=== PATIENT | female | born 1995 | race Caucasian/White ===

== ENCOUNTER 2020-03-17 18:18 | Emergency (ER) | payer OTHER ==
[~2020-03-17] VITALS: Ht 167.6 cm; Wt 110.0 kg
--- NOTE | 2020-03-17 18:50 | PHYS DOC ---
Past History Past Medical History: Anemia, GERD, Other Past Medical History Mold Infection of Lungs-[place] [facility] EDM: Chief Complaint: NAUSEA/VOMITING/DIARRHEA HPI: HPI: ".. I ve been sick since yesterday... Nausea.. Vomiting... Diarrhea.. everyone else ate the same food,.. rice, beans.. last night.. the diarrhea is like Water like..the diarrhea just does not stop... some cramping.. no one else is sick.. 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 Patient normally healthy. 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 Patient up-to-date with vaccinations. No recent travel outside the [place] area but had moved here from [place] to teach school at the [employer]. No one else in the home are sick. All the other members of the family member have been eating the same food. They are on city water. They are not exposed to animals. Patient said the pain is somewhat generalized.. There is no specific area of rebound. Patient normally follows with Dr. Bain. Last meal intake was beans and rice last night. Review of Systems: Review of Systems: Constitutional: Denies fever or chills Eyes: Denies change in visual acuity HENT: Denies nasal congestion or sore throat Respiratory: Denies cough or shortness of breath Cardiovascular: Denies chest pain or edema GI: Complains of generalized abdominal pain, nausea, and watery diarrhea : Denies dysuria Musculoskeletal: Denies back pain or joint pain Integument: Denies rash Neurologic: Denies headache, focal weakness or sensory changes Endocrine: Denies polyuria or polydipsia Lymphatic: Denies swollen glands Psychiatric: Denies depression or anxiety Family History: Family History: Noncontributory to presentation Current Medications: Current Meds: See nursing for home meds Allergies: Allergies: No known drug allergies Physical Exam: PE: Constitutional: Well developed, well nourished, moderate acute distress, non- toxic appearance. [] HENT: Normocephalic, atraumatic, bilateral external ears normal, oropharynx dry, no oral exudates, nose normal. [] Eyes: PERRLA, EOMI, conjunctiva normal, no discharge. [] Neck: Normal range of motion, no tenderness, supple, no stridor. [] Cardiovascular: Tachycardia heart rate regular rhythm, no murmur [] Lungs & Thorax: Bilateral breath sounds equal at apex on auscultation [] Abdomen: Bowel sounds hyperactive, soft, generalized tenderness, no masses, no pulsatile masses. No focal areas of rebound lower abdomen, but does have some Rt. upper quadrant/ epigastric tenderness. Tympanic. Skin: Warm, dry, no erythema, no rash. [] Back: No tenderness, no CVA tenderness. [] Extremities: No tenderness, no cyanosis, no clubbing, ROM intact, no edema. No cording. No psoas sign. Neurologic: Alert and oriented X 3, normal motor function, normal sensory function, no focal deficits noted. [] Psychologic: Affect anxious, judgement normal, mood normal. [] EKG: EKG: [] Radiology/Procedures: Radiology/Procedures: [][place] [address] IMAGING REPORT Signed PATIENT: MARTINA HODGSON ACCOUNT: [id number] : 1995 LOCATION: ER AGE: 24 SEX: F EXAM STATUS: DEP ER ORD. PHYSICIAN: ROXANA CERVANTES MD REASON: n,v, pain PROCEDURE: ACUTE ABDOMEN SERIES Acute abdominal series: Reason for examination: Nausea and vomiting pain. The heart size is normal. Mediastinum is unremarkable. Lung jorgensen show a few small calcified granuloma. No consolidated infiltrates or pleural effusions are evident. No acute bony abnormalities are seen. In the abdomen, there is no gross organomegaly. Psoas muscles are symmetric. The bowel gas pattern is nonspecific with no abnormally dilated loops of bowel but a few air-fluid levels are present which may reflect mild ileus or changes from early or partial bowel obstruction. No abnormal calcifications are identified. No acute bony abnormalities are seen. IMPRESSION: No acute cardiopulmonary disease. A few scattered air-fluid levels on upright image which may reflect ileus or changes from early or partial bowel obstruction. Recommend clinical correlation and follow-up. Electronically signed by: Stephanie Lora MD (03/17/2020 10:52 PM) [facility] DICTATED AND SIGNED BY: STEPHANIE LORA MD DATE: 03/17/202247 CC: ROXANA CERVANTES MD; ANALI BAIN ~MTH0 0 Heart Score: Risk Factors: Risk Factors: DM, Current or recent (<one month) smoker, HTN, HLP, family history of CAD, obesity. Risk Scores: Score 0 - 3: 2.5% MACE over next 6 weeks - Discharge Home Score 4 - 6: 20.3% MACE over next 6 weeks - Admit for Clinical Observation Score 7 - 10: 72.7% MACE over next 6 weeks - Early Invasive Strategies Course & Med Decision Making: Course & Med Decision Making Pertinent Labs and Imaging studies reviewed. (See chart for details) Patient stay on a clear fluid diet for the next 24 to 48 hours. Allow bowel rest. No solids or milk products. Push clear fluids. Take Zofran 8 mg up to 4 times a day for active vomiting. May use [id number] Pepto-Bismol as needed for diarrhea episodes. 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 Patient wear a mask anytime she is outside the home. Mass should cover her nose and mouth at all times. Take Tylenol and ibuprofen as needed for discomfort. Return if any concerns. Impression: [1. Acute gastroenteritis 2. Viral syndrome 3. Mild dehydration] 4. GERD/gastritis [place] Disclaimer: Ángela Disclaimer: This electronic medical record was generated, in whole or in part, using a voice recognition dictation system. Departure Departure: Referrals: ANALI BAIN (PCP) Scripts Oxycodone HCl/Acetaminophen (Percocet 5-325 mg Tablet) 1 Each Tablet 1 TAB PO PRN QID PRN for PAIN MDD 4 Tablet(s) for 30 Days, #120 TAB 0 Refills Prov: ROXANA CERVANTES MD 03/17/20 Famotidine (PEPCID) 20 Mg Tablet 20 MG PO BID for gerd for 30 Days, #60 TAB Prov: ROXANA CERVANTES MD 03/17/20 Ondansetron Hcl (ZOFRAN) 4 Mg Tablet 8 MG PO QIDPRN for nv, #30 TAB Prov: ROXANA CERVANTES MD 03/17/20 Dragon Disclaimer This chart was dictated in whole or in part using Voice Recognition software in a busy, high-work load, and often noisy Emergency Department environment. It may contain unintended and wholly unrecognized errors or omissions. ROXANA CERVANTES MD Mar 17, 2020 18:50
[2020-03-17] MEDS ORDERED: ONDANSETRON PF 4 MG/2 ML VIAL. IVP ONE (19:15)
[2020-03-17] MEDS ORDERED: oxyCODONE/APAP 5/325 1 TAB TABLET PO ONE (19:15)
[2020-03-17] MEDS ORDERED: IV RINGERS SOLUTION,LACTATED 1,000 ML IV SCH (19:15)
[2020-03-17] MEDS ORDERED: FAMOTIDINE 20 MG/2 ML VIAL IVP ONE (19:15)
[2020-03-17 19:34] LABS: BASO % 0 % (0-3); EOS % 0 % (0-3); HEMATOCRIT 40.1 % (36.0-47.0); HEMOGLOBIN 12.8 g/dL (12.0-15.5); LYMPH % 14 % (24-48); MEAN CORPUSCULAR HEMOGLOBIN 26 pg (25-35); MEAN CORPUSCULAR HGB CONC 32 g/dL (31-37); MEAN CORPUSCULAR VOLUME 82 fL (79-100); MONO # 0.2 x10^3/uL (0.0-1.1); MONO % 3 % (0-9); NEUT # 5.7 x10^3uL (1.8-7.7); NEUT % 83 % (31-73); PLATELET COUNT 257 x10^3/uL (140-400); RED BLOOD COUNT 4.92 x10^6/uL (3.50-5.40); RED CELL DISTRIBUTION WIDTH 15.6 % (11.5-14.5)
[2020-03-17 19:37] LABS: CALCIUM 9.3 mg/dL (8.5-10.1); CREATININE 0.7 mg/dL (0.6-1.0); GFR 101.1; POTASSIUM 3.6 mmol/L (3.5-5.1)
[2020-03-17 19:42] VITALS: BP 115/66
[2020-03-17 19:43] LABS: ALBUMIN 3.9 g/dL (3.4-5.0); DIRECT BILIRUBIN 0.1 mg/dL (0.0-0.2); TOTAL BILIRUBIN 0.3 mg/dL (0.2-1.0); TOTAL PROTEIN 8.2 g/dL (6.4-8.2)
[2020-03-17 21:10] LABS: INFLUENZA A PATIENT NEGATIVE (NEGATIVE); INFLUENZA B PATIENT NEGATIVE (NEGATIVE)
[2020-03-17 21:43] LABS: BACTERIA,URINE FEW /HPF (0-FEW); BILIRUBIN,URINE NEG (NEG); CLARITY,URINE CLEAR; COLOR,URINE YELLOW; GLUCOSE,URINE NEG (NEG); NITRITE,URINE NEG (NEG); RBC,URINE OCC /HPF (0-2); SQUAMOUS EPITHELIAL CELL,UR OCC /LPF; UROBILINOGEN,URINE 0.2 mg/dL (0.2 mg/dL); WBC,URINE OCC /HPF (0-4)
[2020-03-17] MEDS ORDERED: ONDA4TAB7 PO (22:10)
[2020-03-17] MEDS ORDERED: FAMO-63 PO (22:10)
[2020-03-17] MEDS ORDERED: OXYC-325 PO (22:12)
--- NOTE | 2020-03-17 22:54 | RAD ---
Acute abdominal series: Reason for examination: Nausea and vomiting pain. The heart size is normal. Mediastinum is unremarkable. Lung jorgensen show a few small calcified granulo ma. No consolidated infiltrates or pleural effusions are evident. No acute bony abnormalities are see n. In the abdomen, there is no gross organomegaly. Psoas muscles are symmetric. The bowel gas pattern is nonspecific with no abnormally dilated loops of bowel but a few air-fluid levels are present which m ay reflect mild ileus or changes from early or partial bowel obstruction. No abnormal calcifications are identified. No acute bony abnormalities are seen. IMPRESSION: No acute cardiopulmonary disease. A few scattered air-fluid levels on upright image which may reflect ileus or changes from early or pa rtial bowel obstruction. Recommend clinical correlation and follow-up. Electronically signed by: Stephanie Sharma MD (03/17/2020 10:52 PM) [facility]
--- NOTE | 2020-03-21 14:43 | NUR ---
IP: attempt to return call to patient regarding COVID test result, unable to make call, error message.
== END 2020-03-17 22:45 | disposition home or self-care (01) ==
LOC: ER 18:18
DX: K52.9 Noninfective gastroenteritis and colitis, unspecified (principal); B34.9 Viral infection, unspecified; E86.0 Dehydration; Z20.822 Contact with and (suspected) exposure to COVID-19
CPT/HCPCS: 36415; 74022; 80048; 80076; 81001; 81025; 83690; 84702; 85025; 87804; 96361; 96374; 96375; 99284; C9803; J2405; J3490; J7120; U0003

== ENCOUNTER 2020-04-23 12:46 | Observation (INO) | payer OTHER ==
[~2020-04-23] VITALS: Ht 167.6 cm; Wt 105.0 kg
[~2020-04-23 12:46] MED LIST: FAMO-63 PO; ONDA4TAB7 PO; OXYC-325 PO
--- NOTE | 2020-04-23 14:15 | NUR ---
PT ARRIVED TO UNIT VIA AMBULATION. PTS VS OBTAINED AND ARE STABLE. PT IS OFFERED FOOD AND DRINK AND ACCEPTS. 20G IV STARTED IN l AC. LABS DRAWN. PT IS ORIENTED TO ROOM AND PROCEDURES PT IS GIVEN ALL ADMISSION TEACHING. PT IS RESTING IN ROOM AT THIS TIME,
[2020-04-23] MEDS ORDERED: MORPHINE SULFATE 2 MG/ML DISP.SYRIN. IV PRN (14:30)
[2020-04-23] MEDS ORDERED: IV 1/2 NORMAL SALINE 1,000 ML IV PRN (14:30)
[2020-04-23] MEDS ORDERED: ONDANSETRON PF 4 MG/2 ML VIAL. IVP PRN (14:30)
[2020-04-23 14:46] LABS: BASO % 1 % (0-3); EOS # 0.1 x10^3/uL (0.0-0.7); EOS % 2 % (0-3); HEMATOCRIT 36.7 % (36.0-47.0); HEMOGLOBIN 11.9 g/dL (12.0-15.5); LYMPH # 1.4 x10^3/uL (1.0-4.8); LYMPH % 27 % (24-48); MEAN CORPUSCULAR HEMOGLOBIN 26 pg (25-35); MEAN CORPUSCULAR HGB CONC 32 g/dL (31-37); MEAN CORPUSCULAR VOLUME 80 fL (79-100); MONO # 0.3 x10^3/uL (0.0-1.1); MONO % 6 % (0-9); NEUT # 3.4 x10^3uL (1.8-7.7); NEUT % 65 % (31-73); PLATELET COUNT 302 x10^3/uL (140-400); RED BLOOD COUNT 4.56 x10^6/uL (3.50-5.40); RED CELL DISTRIBUTION WIDTH 14.5 % (11.5-14.5); WHITE BLOOD COUNT 5.2 x10^3/uL (4.0-11.0)
--- NOTE | 2020-04-23 14:58 | NUR ---
DR MONET PAGED FOR NEUROLOGY CONSULT.
[2020-04-23 15:00] VITALS: BP 136/72
[2020-04-23 15:07] LABS: ALBUMIN 3.5 g/dL (3.4-5.0); ALBUMIN/GLOBULIN RATIO 0.9 (1.0-1.7); CALCIUM 9.2 mg/dL (8.5-10.1); CREATININE 0.7 mg/dL (0.6-1.0); DIRECT BILIRUBIN 0.1 mg/dL (0.0-0.2); GFR 100.4; POTASSIUM 3.9 mmol/L (3.5-5.1); TOTAL BILIRUBIN 0.3 mg/dL (0.2-1.0); TOTAL PROTEIN 7.5 g/dL (6.4-8.2)
--- NOTE | 2020-04-23 15:08 | RAD ---
Study: CT lumbar spine without contrast INDICATION: Lower extremity numbness. COMPARISON: None. TECHNIQUE: Axial CT imaging of the lumbar spine performed without the use of intravenous contrast. One or more of the following individualized dose reduction techniques were utilized for this examinat ion: 1. Automated exposure control 2. Adjustment of the mA and/or kV according to patient size 3. Use of iterative reconstruction technique. FINDINGS: No acute fracture. Maintained vertebral body height and alignment. Minimal disc space narrowing at L5 -S1. No advanced facet arthrosis. No large disc bulge but there is a mild central/left paracentral di sc protrusion at L5-S1 appearing to measure up to 5 mm AP. No significant central canal stenosis. Mil d encroachment on the left lateral recess at L5-S1. Mild osseous neural foraminal stenosis bilaterall y at L5-S1. Mild periarticular sclerosis at the SI joints without an active erosion. No ankylosis. Within normal limits paraspinous soft tissues and visualized abdominopelvic contents. IMPRESSION: 1. No acute or aggressive osseous process. 2. Mild degenerative changes at L5-S1 with a central/left paracentral disc protrusion that could mil dly encroach on the left lateral recess. Bilateral osseous neural foraminal stenosis. No evidence for significant central canal narrowing. Outpatient/nonemergent MRI would allow for better characterizat ion as deemed clinically necessary. Electronically signed by: YONAS GANN MD (04/23/2020 3:06 PM) [facility] [place]
[2020-04-23 18:07] LABS: BILIRUBIN,URINE NEG (NEG); CLARITY,URINE CLEAR; COLOR,URINE YELLOW; GLUCOSE,URINE NEG (NEG); NITRITE,URINE NEG (NEG)
[2020-04-23 18:08] LABS: BACTERIA,URINE FEW /HPF (0-FEW); RBC,URINE OCC /HPF (0-2); SQUAMOUS EPITHELIAL CELL,UR MANY /LPF; WBC,URINE OCC /HPF (0-4)
[2020-04-23] MEDS ORDERED: LORazepam TOPICAL 0.5 MG/ML GEL TP PRN (18:30)
[2020-04-23] MEDS ORDERED: LORazepam 0.5 MG TABLET PO PRN (18:30)
[2020-04-23 19:00] VITALS: BP 98/55
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
[2020-04-24 06:12] VITALS: BP 106/65
--- NOTE | 2020-04-24 06:12 | NUR ---
Shift Note: Pt a/o x4, VSS, no c/o n/v during night, pt continues to c/o numbness in bilateral hands and weakness in bilateral LE, no incidence of incontinence during night. Dr. Aquino saw pt last evening and discussed outpatient MRI at [facility] and then f/u in his office for EMG (pt aware of plan), pt anticipating d/c today.
[2020-04-24] MEDS ORDERED: methylPREDNISolone SOD SUCC PF 40 MG/ML VIAL. IV ONE (10:30)
--- NOTE | 2020-04-24 11:17 | PN ---
DATE: REFERRING PHYSICIAN: Dr. Steffen Blackmon SUBJECTIVE: The patient continued to complain of numbness and paresthesia of the distal upper and lower extremities along with lower back pain described as burning sensation. She denies neck pain this morning. She has not had any new medical or neurological complaints. OBJECTIVE: GENERAL: Obese female, not in acute distress. VITAL SIGNS: Blood pressure 106/65, respiratory rate 12, pulse is ____, temperature 97.5, oxygen saturation 97% on room air. HEENT: Normocephalic, atraumatic, otherwise unremarkable. NECK: Supple. Negative for carotid bruit, lymphadenopathy or thyromegaly. LUNGS: Clear to A and P. CARDIOVASCULAR: Regular rate and rhythm, normal S1, S2. ABDOMEN: Soft. Bowel sounds positive. EXTREMITIES: Negative for cyanosis, clubbing or edema. NEUROLOGICAL EXAM: Normal mental status and intact cranial nerves. There is no focal motor deficit. The strength is 5/5 throughout. Sensory examination revealed diminished pinprick and light touch senses in patchy distributions in distal upper and lower extremities. Deep tendon reflexes were symmetric and active without pathology responses. Gait and coordination are normal. IMPRESSION: 1. Neck and lower back pain with degenerative disk disease and bulging disk at L5-S1. 2. Positive ____ and Phalen's signs suggestive of entrapment neuropathy at the wrist and possible bilateral carpal tunnel syndrome. 3. Chronic radicular lower back pain. RECOMMENDATIONS: 1. Continue with previous neurological recommendation including C-spine and lumbosacral spine MRI. 2. ____ EMG/NCS of the upper and lower extremities to rule out entrapment neuropathy versus radiculopathy. M Gonzalo MONET MD DR: SABAS/anais JOB#: [id number] / [id number]
--- NOTE | 2020-04-24 11:36 | NUR ---
PATIENT IS DISCHARGED HOME. DISCHARGE INSTRUCTIONS AND FOLLOW UP APPOINTMENTS REVIEWED, PATIENT VERBALIZED UNDERSTANDING. PATIENT LEFT ROOM VIA AMBULATION ACCOMP BY THIS RN. PATIENT IS DRIVING SELF HOME.
== END 2020-04-24 11:35 | disposition home or self-care (01) ==
LOC: INTOOBSV 13:59 → ICU 13:59
PROVIDERS: ADMIT Family Medicine; ATTEND Family Medicine
DX: M51.37 Other intervertebral disc degeneration, lumbosacral region (principal); G89.29 Other chronic pain; M54.2 Cervicalgia; J45.909 Unspecified asthma, uncomplicated; M19.90 Unspecified osteoarthritis, unspecified site; R32 Unspecified urinary incontinence; Z98.891 History of uterine scar from previous surgery; V89.2XXA Person injured in unspecified motor-vehicle accident, traffic, initial encounter; Y92.410 Unspecified street and highway as the place of occurrence of the external cause; Y93.89 Activity, other specified; Y99.8 Other external cause status
CPT/HCPCS: 36415; 72131; 80053; 80076; 81001; 85025; 85379; 86140; 96374; G0378; G0379; J2920

== ENCOUNTER 2020-06-14 14:25 | Emergency (ER) | payer OTHER ==
[~2020-06-14] VITALS: Ht 167.6 cm; Wt 103.0 kg
--- NOTE | 2020-06-14 15:06 | PHYS DOC ---
Past History Past Medical History: Asthma Past Surgical History: Alcohol Use: None General Adult EDM: Chief Complaint: VAGINAL BLEEDING HPI: HPI: Patient is a 25-year-old female who presents with vaginal bleeding with . Patient states that she was seen on Tuesday by her PCP and told that she was . Last menstrual period was the beginning of March. Patient is G3, P1. Patient is also reporting lower pelvic pain. Patient denies taking anything for discomfort. Patient has not confirmed with OB yet. Patient states that she has an appointment next Tuesday for an ultrasound. Review of Systems: Review of Systems: Constitutional: Denies fever or chills Eyes: Denies change in visual acuity HENT: Denies nasal congestion or sore throat Respiratory: Denies cough or shortness of breath Cardiovascular: Denies chest pain or edema GI: Reports lower abdominal pain, nausea. denies vomiting, bloody stools or diarrhea /Vaginal: Denies dysuria, reports light spotting Musculoskeletal: Denies back pain or joint pain Integument: Denies rash Neurologic: Denies headache, focal weakness or sensory changes Endocrine: Denies polyuria or polydipsia Lymphatic: Denies swollen glands Psychiatric: Denies depression or anxiety Allergies: Allergies: Allergies Coded Allergies Type Severity Reaction Last Updated Verified No Known Drug Allergies 06/14/20 No Physical Exam: PE: Constitutional: Well developed, well nourished, no acute distress, non-toxic appearance. [] HENT: Normocephalic, atraumatic, bilateral external ears normal, oropharynx moist, no oral exudates, nose normal. [] Eyes: PERRLA, EOMI, conjunctiva normal, no discharge. [] Neck: Normal range of motion, no tenderness, supple, no stridor. [] Cardiovascular:Heart rate regular rhythm, no murmur [] Lungs & Thorax: Bilateral breath sounds clear to auscultation [] Abdomen: Bowel sounds normal, soft, no tenderness Skin: Warm, dry, no erythema, no rash. [] Back: No tenderness, no CVA tenderness. [] Extremities: No tenderness, no cyanosis, no clubbing, ROM intact, no edema. [] Neurologic: Alert and oriented X 3, normal motor function, normal sensory function, no focal deficits noted. [] Psychologic: Affect normal, judgement normal, mood normal. [] Current Patient Data: Vital Signs: Vital Signs Date Time Temp Pulse Resp B/P (MAP) Pulse Ox O2 Delivery O2 Flow Rate FiO2 06/14/20 14:30 98.6 100 20 119/64 (82) 97 Room Air EKG: EKG: [] Radiology/Procedures: Radiology/Procedures: []EXAM: OBSTETRIC ULTRASOUND, <14 WEEKS. HISTORY: Pelvic pain and vaginal bleeding in . COMPARISON: None. FINDINGS: Sonographic evaluation of the pelvis was performed transabdominally. The uterus is anteverted and measures 11.1 x 8 0.0, 7.0 cm. There is a single intrauterine gestation measuring 9 weeks 5 days. heart rate is 173 bpm. A yolk sac is visualized. The gestational sac is regular. There is no subchorionic collection. The right ovary measures 3.5 x 2.4 x 2.4 cm. The left ovary measures 2.7 x 1.9 x 1.6 cm. There is normal Doppler flow bilaterally. There is no adnexal mass. There is no significant free fluid. IMPRESSION: 1. Single intrauterine gestation measuring 9 weeks 5 days. heart rate 173 bpm. Electronically signed by: Kathleen Johnson MD (06/14/2020 4:23 PM) [facility] Heart Score: C/O Chest Pain: No Risk Factors: Risk Factors: DM, Current or recent (<one month) smoker, HTN, HLP, family history of CAD, obesity. Risk Scores: Score 0 - 3: 2.5% MACE over next 6 weeks - Discharge Home Score 4 - 6: 20.3% MACE over next 6 weeks - Admit for Clinical Observation Score 7 - 10: 72.7% MACE over next 6 weeks - Early Invasive Strategies Course & Med Decision Making: Course & Med Decision Making Pertinent Labs and Imaging studies reviewed. (See chart for details) [] Patient is transferring female presents with vaginal bleeding with . Patient was told on Tuesday by her PCP that she was . Patient is G3, P1. Patient is reporting lower pelvic pain. Ultrasound was ordered. Patient reports symptoms started this morning. UA negative for infection. Urine prior negative. All other labs unremarkable. Ultrasound shows Single intrauterine gestation measuring 9 weeks 5 days. heart rate 173 bpm. Instructed patient to follow-up with her OB on Tuesday. Patient to return to the emergency room with worsening symptoms or concerns. Dragon Disclaimer: Dragon Disclaimer: This electronic medical record was generated, in whole or in part, using a voice recognition dictation system. Departure Departure: Impression: Primary Impression: Vaginal bleeding during Disposition: 01 HOME / SELF CARE / HOMELESS Condition: STABLE Referrals: JEFERSON MEJIA MD (PCP) Patient Instructions: Vaginal Bleeding During , First Trimester Additional Instructions: You were seen in the emergency room for vaginal bleeding with . Your ultrasound shows single intrauterine gestation measuring 9 weeks 5 days. heart rate 173 bpm. Please follow-up with your OB on Tuesday for further management. I am providing you with a copy of the ultrasound report. If you have worsening symptoms or concerns please return to the emergency room. EMERGENCY DEPARTMENT GENERAL DISCHARGE INSTRUCTIONS Thank you for coming to [facility] (ED) today and trusting us with you care. We trust that you had a positivie experience in our Emergency Department. If you wish to speak to the department management, you may call the director at [phone]. YOUR FOLLOW UP INSTRUCTIONS ARE FOLLOWS: 1. Do you have a private Doctor? If you do not have a private doctor, please ask for a resource list of physicians or clinics that may be able to assist you with follow up care. 2. The Emergency Physician has interpreted your x-rays. The X-Ray specialist will also review them. If there is a change in the findings, you will be notified in 48 hours when at all possible. 3. A lab test or culture has been done, your results will be reviewed and you will be notified if you need a change in treatment. ADDITIONAL INSTRUCTIONS AND INFORMATION: 1. Your care today has been supervised by a physician who is specially trained in emergency care. Many problems require more than one evaluation for a complete diagnosis and treatment. We recommend that you schedule your follow up appointment as recommended to ensure complete treatment of you illness or injury. If you are unable to obtain follow up care and continue to have a problem, or if your condition worsens, we recommend that you return to the ED. 2. We are not able to safely determine your condition over the phone nor are we able to give sound medical advice over the phone. For these safety reasons, if you call for medical advice we will ask you to come to the ED for further evaluation. 3. If you have any questions regarding these discharge instructions please call the ED at [phone]. SAFETY INFORMATION: In the interest of safety, wellness, and injury prevention; we encourage you to wear your sealbelt, if you smoke; quite smoking, and we encourage family to use a protective helmet for bicycling and other sporting events that present an increased risk for head injury. IF YOUR SYMPTOMS WORSEN OR NEW SYMPTOMS DEVELOP, OR YOU HAVE CONCERNS ABOUT YOUR CONDITION; OR IF YOUR CONDITION WORSENS WHILE YOU ARE WAITING FOR YOUR FOLLOW UP APPOINTMENT; EITHER CONTACT YOUR PRIMARY CARE DOCTOR, THE PHYSICIAN WHOSE NAME AND NUMBER YOU WERE GIVEN, OR RETURN TO THE ED IMMEDIATELY. YANCI FERRELL APRN Jun 14, 2020 15:05
[2020-06-14] MEDS ORDERED: IV NORMAL SALINE 1,000ML 1,000 ML IV ONE (15:15)
[2020-06-14 15:36] LABS: BASO % 0 % (0-3); EOS % 0 % (0-3); HEMATOCRIT 35.3 % (36.0-47.0); HEMOGLOBIN 11.6 g/dL (12.0-15.5); LYMPH # 0.9 x10^3/uL (1.0-4.8); LYMPH % 23 % (24-48); MEAN CORPUSCULAR HEMOGLOBIN 26 pg (25-35); MEAN CORPUSCULAR HGB CONC 33 g/dL (31-37); MEAN CORPUSCULAR VOLUME 79 fL (79-100); MONO # 0.3 x10^3/uL (0.0-1.1); MONO % 8 % (0-9); NEUT # 2.5 x10^3uL (1.8-7.7); NEUT % 68 % (31-73); PLATELET COUNT 241 x10^3/uL (140-400); RED BLOOD COUNT 4.48 x10^6/uL (3.50-5.40); RED CELL DISTRIBUTION WIDTH 13.9 % (11.5-14.5); WHITE BLOOD COUNT 3.7 x10^3/uL (4.0-11.0)
[2020-06-14 15:42] LABS: CALCIUM 9.1 mg/dL (8.5-10.1); CREATININE 0.7 mg/dL (0.6-1.0); GFR 100.4; POTASSIUM 3.7 mmol/L (3.5-5.1)
[2020-06-14 15:47] LABS: ALBUMIN 3.2 g/dL (3.4-5.0); ALBUMIN/GLOBULIN RATIO 0.7 (1.0-1.7); TOTAL BILIRUBIN 0.2 mg/dL (0.2-1.0); TOTAL PROTEIN 7.9 g/dL (6.4-8.2)
[2020-06-14 15:48] LABS: BILIRUBIN,URINE SMALL (NEG); CLARITY,URINE HAZY; COLOR,URINE AMBER; GLUCOSE,URINE NEG (NEG); NITRITE,URINE NEG (NEG)
[2020-06-14 15:49] LABS: BACTERIA,URINE 0 /HPF (0-FEW); RBC,URINE OCC /HPF (0-2); SQUAMOUS EPITHELIAL CELL,UR MOD /LPF; WBC,URINE 0 /HPF (0-4)
--- NOTE | 2020-06-14 16:26 | RAD ---
EXAM: OBSTETRIC ULTRASOUND, <14 WEEKS. HISTORY: Pelvic pain and vaginal bleeding in . COMPARISON: None. FINDINGS: Sonographic evaluation of the pelvis was performed transabdominally. The uterus is anteverted and measures 11.1 x 8 0.0, 7.0 cm. There is a single intrauterine gestation measuring 9 weeks 5 days. heart rate is 173 bpm. A yolk sac is visualized. The gestational sac is regular. There is no subchorionic collection. The right ovary measures 3.5 x 2.4 x 2.4 cm. The left ovary measures 2.7 x 1.9 x 1.6 cm. There is nor mal Doppler flow bilaterally. There is no adnexal mass. There is no significant free fluid. IMPRESSION: 1. Single intrauterine gestation measuring 9 weeks 5 days. heart rate 173 bpm. Electronically signed by: Kathleen Johnson MD (06/14/2020 4:23 PM) [facility]
[2020-06-14 17:05] VITALS: BP 119/72
== END 2020-06-14 17:10 | disposition home or self-care (01) ==
LOC: ER 14:25
DX: O46.91 Antepartum hemorrhage, unspecified, first trimester (principal); R10.2 Pelvic and perineal pain; O99.511 Diseases of the respiratory system complicating pregnancy, first trimester; J45.909 Unspecified asthma, uncomplicated; Z3A.09 9 weeks gestation of pregnancy
CPT/HCPCS: 36415; 76801; 80053; 81001; 81025; 85025; 86850; 86900; 86901; 96360; 99284; J7030

== ENCOUNTER 2020-12-09 23:30 | Emergency (ER) | payer OTHER ==
--- NOTE | 2020-12-09 23:48 | PHYS DOC ---
Past History Past Medical History: Asthma (MODESTO SAUER APRN) Past Surgical History: (MODESTO SAUER APRN) Alcohol Use: None (MODESTO SAUER APRN) General Adult EDM: Chief Complaint: VAGINAL BLEEDING HPI: HPI: Is a 25-year-old female who presents to the emergency department with vaginal bl eeding, contractions and feeling like she is losing with platelets of her water broke. She is approximately 35 weeks . Her doctor is Dr. Pantoja at [facility]. She states that they have been monitoring her fluid levels and she was seen there today but states that her pain and her bleeding has increased. (MODESTO SAUER APRN) Allergies: Allergies: Allergies Coded Allergies Type Severity Reaction Last Updated Verified No Known Drug Allergies 06/14/20 No (MODESTO SAUER APRN) EKG: EKG: [] (MODESTO SAUER APRN) Radiology/Procedures: Radiology/Procedures: [] (MODESTO SAUER APRN) Heart Score: C/O Chest Pain: N/A Risk Factors: Risk Factors: DM, Current or recent (<one month) smoker, HTN, HLP, family history of CAD, obesity. Risk Scores: Score 0 - 3: 2.5% MACE over next 6 weeks - Discharge Home Score 4 - 6: 20.3% MACE over next 6 weeks - Admit for Clinical Observation Score 7 - 10: 72.7% MACE over next 6 weeks - Early Invasive Strategies (MODESTO SAUER APRN) Course & Med Decision Making: Course & Med Decision Making Pertinent Labs and Imaging studies reviewed. (See chart for details) Is a 25-year-old female who presents to the emergency department with vaginal bleeding, contractions and feeling like she is losing with platelets of her water broke. She is approximately 35 weeks . Her doctor is Dr. Pantoja at [facility]. She states that they have been monitoring her fluid levels and she was seen there today but states that her pain and her bleeding has increased. Discussed with supervising physician. I advised patient that at this facility we do not have the ability to admit OB patients and we do not have monitoring equipment. I notified patient that she would need to be transferred to [facility]. I gave patient the option of formally transferring her but she elected to not be seen in this ER and she stated "no I have them out in the waiting room that would take me". She elected to leave without being seen and go private vehicle to [facility] where her OB is. (MODESTO SAUER APRN) Dragon Disclaimer: Ángela Disclaimer: This electronic medical record was generated, in whole or in part, using a voice recognition dictation system. (MODESTO SAUER APRN) Attending Co-Sign The patient was seen and interviewed as well as examined at the bedside. The chart was reviewed. The case was discussed. Agree with the plan of care. (KARLA JONES DO) Departure Departure: Impression: Primary Impression: Patient left without being seen Additional Impression: Abdominal pain during intrauterine Disposition: LEFT WITHOUT BEING SEEN Condition: LEFT WITHOUT BEING SEEN Referrals: JEFERSON MEJIA MD (PCP) MODESTO SAUER APRN Dec 09, 2020 23:48 KARLA JONES DO Dec 11, 2020 14:17
== END 2020-12-09 23:51 | disposition left against medical advice (07) ==
LOC: ER 23:30
DX: O20.8 Other hemorrhage in early pregnancy (principal); R10.9 Unspecified abdominal pain; Z3A.35 35 weeks gestation of pregnancy; Z53.21 Procedure and treatment not carried out due to patient leaving prior to being seen by health care provider

== ENCOUNTER 2021-02-07 00:54 | Emergency (ER) | payer OTHER ==
[~2021-02-07] VITALS: Ht 167.6 cm; Wt 96.5 kg
--- NOTE | 2021-02-07 00:59 | PHYS DOC ---
Past History Past Medical History: Asthma (ROXANA CERVANTES MD) Past Surgical History: (ROXANA CERVANTES MD) Alcohol Use: None (ROXANA CERVANTES MD) General Adult HPI: HPI: ".. I had chest pain constant the last two days... I had COVID last Oct. and have had one of my COVID vaccination.. Moderna.... I did not get the second yet .. because I had fever with the lst one... "" I am worried .. I got COVID again.." Patient is a 25 year old female who presents with above hx and complaints of chest pain. Patient states the chest pain is central across her central chest anterior breast. There is some relation with deep breaths and cough. Patient rates pain as 5 out of 10. Patient did take ibuprofen with pain last couple days with no improvement. Pain has been constant last 2 days. Patient denies any trauma. Patient denies any history of previous DVTs or pulmonary embolisms. Patient denies any history of prior cardiac disorders. Patient did complete 1 COVID vaccination however did not repeat the second because she had a fever. Patient denies any trauma. No recent travel. Did had COVID in October of last year. Patient did get flu vaccination. Patient normally follows with Dr. Altamirano. Patient does not smoke. Patient denies illicit drug use. (ROXANA CERVANTES MD) Review of Systems: Review of Systems: Constitutional: Denies fever or chills Eyes: Denies change in visual acuity HENT: Denies nasal congestion or sore throat Respiratory: Denies cough or shortness of breath Cardiovascular: Complains of chest pain GI: Denies abdominal pain, nausea, vomiting, bloody stools or diarrhea : Denies dysuria Musculoskeletal: Denies back pain or joint pain Integument: Denies rash Neurologic: Denies headache, focal weakness or sensory changes Endocrine: Denies polyuria or polydipsia Lymphatic: Denies swollen glands Psychiatric: Denies depression or anxiety (ROXANA CERVANTES MD) Family History: Family History: Noncontributory to presentation (ROXANA CERVANTES MD) Current Medications: Current Meds: See nursing for home meds (ROXANA CERVANTES MD) Allergies: Allergies: Allergies Coded Allergies Type Severity Reaction Last Updated Verified No Known Drug Allergies 06/14/20 No (ROXANA CERVANTES MD) Physical Exam: PE: Constitutional: acute distress, non-toxic appearance. [] HENT: Normocephalic, atraumatic, bilateral external ears normal, oropharynx moist, no oral exudates, nose normal. [] Eyes: PERRLA, EOMI, conjunctiva normal, no discharge. [] Neck: Normal range of motion, no tenderness, supple, no stridor. [] Cardiovascular: Tachycardia heart rate regular rhythm, no murmur [] Lungs & Thorax: Bilateral breath sounds equal at apex with few scattered wheezes on auscultation []. Chest wall tenderness with deep breaths and cough Abdomen: Bowel sounds normal, soft, no tenderness, no masses, no pulsatile masses. Obese. Skin: Warm, dry, no erythema, no rash. [] Back: No tenderness, no CVA tenderness. [] Extremities: No tenderness, no cyanosis, no clubbing, ROM intact, no edema. No cording noted on the legs. Neurologic: Alert and oriented X 3, normal motor function, normal sensory function, no focal deficits noted. [] Psychologic: Affect very anxious, judgement normal, mood normal. [] (ROXANA CERVANTES MD) EKG: EKG: My interpretation EKG shows sinus rhythm 74pm. No findings of acute STEMI with contralateral changes. Does have occasional PACs. Time of EKG is 0105 (ROXANA CERVANTES MD) Radiology/Procedures: Radiology/Procedures: [] (ROXANA CERVANTES MD) Impressions: CTA CHEST INDICATION: Dyspnea, cp Comparison: None. TECHNIQUE: Following the uneventful administration of intravenous contrast, 100 cc Omnipaque 350, axial CT sections were obtained through the lungs and upper abdomen. Multiplanar reconstructions and MIP images were obtained. PQRS compliance statement: One or more of the following individualized dose reduction techniques were utilized for this examination: 1. Automated exposure control 2. Adjustment of the mA and/or kV according to patient size 3. Use of iterative reconstruction technique FINDINGS: Pulmonary arteries: No evidence of pulmonary thromboembolic disease Lungs and Airways: No pulmonary mass or consolidation. No abnormality of the central airways. Pleura: The pleural spaces are normal. Heart and Mediastinum: The visualized thyroid is normal in size and attenuation. Bilateral axillary and subpectoral lymphadenopathy. No mediastinal, hilar or retrocrural lymphadenopathy. The heart and pericardium are within normal limits. Normal caliber thoracic aorta. Abdomen: Limited images through the upper abdomen show no abnormality of the visualized organs. Bones and Soft Tissues: The visualized bones and chest wall soft tissues are within normal limits. IMPRESSION: 1. No evidence of pulmonary thrombolic disease. 2. No pulmonary mass or consolidation. 3. Bilateral axillary and subpectoral lymphadenopathy of indeterminate etiology. While this could be reactive, lymphoproliferative disorder could have a similar appearance. Clinical correlation is advised. Electronically signed by: Keagan Martin MD (02/07/2021 7:00 AM) [facility] DICTATED AND SIGNED BY: KEAGAN MARTIN MD DATE: 02/07/21654 CC: JEFERSON MEJIA MD; ROXANA CERVANTES MD ~MTH0 0 (KARLA JONES DO) Heart Score: C/O Chest Pain: Yes HEART Score for Chest Pain: HEART Score for Chest Pain Response (Comments) Value History Slighlty/Non-Suspicious 0 ECG Nonspecific Repolarizatio 1 Age < 45 0 Risk Factors 1 or 2 Risk Factors 1 Troponin < Normal Limit 0 Total 2 Risk Factors: Risk Factors: DM, Current or recent (<one month) smoker, HTN, HLP, family history of CAD, obesity. Risk Scores: Score 0 - 3: 2.5% MACE over next 6 weeks - Discharge Home Score 4 - 6: 20.3% MACE over next 6 weeks - Admit for Clinical Observation Score 7 - 10: 72.7% MACE over next 6 weeks - Early Invasive Strategies (ROXANA CERVANTES MD) Course & Med Decision Making: Course & Med Decision Making Pertinent Labs and Imaging studies reviewed. (See chart for details) Endorse to Dr. Jones at shift change. CT pending. Patient follow-up with Dr. Altamirano. Review ED work-up. Especially focused on the adenopathy noted on CT. Impression: 1. Chest Pain 2. Elevated D-dimer 2.57 3. Anemia 10.8 Hgb 4. Adenopathy [] (ROXANA CERVANTES MD) Course & Med Decision Making The patient's CTA of the chest does not show pulmonary embolus. Incidentally there are bilateral axillary lymph nodes that are prominent. See official report for more details. I made the patient aware of these results and advised that she follow-up with her primary care physician, Dr. Mejia. The patient is stable for discharge at this time. (KARLA JONES DO) Dragon Disclaimer: Dragon Disclaimer: This electronic medical record was generated, in whole or in part, using a voice recognition dictation system. (ROXANA CERVANTES MD) Departure Departure: Impression: Primary Impression: Chest pain Qualified Codes: R07.89 - Other chest pain Additional Impression: Lymphadenopathy, axillary Disposition: HOME / SELF CARE / HOMELESS Condition: STABLE Referrals: JEFERSON MEJIA MD (PCP) Patient Instructions: Chest Pain (Nonspecific), [id number] Dragon Disclaimer This chart was dictated in whole or in part using Voice Recognition software in a busy, high-work load, and often noisy Emergency Department environment. It may contain unintended and wholly unrecognized errors or omissions. (ROXANA CERVANTES MD) Dragon Disclaimer This chart was dictated in whole or in part using Voice Recognition software in a busy, high-work load, and often noisy Emergency Department environment. It may contain unintended and wholly unrecognized errors or omissions. (ROXANA CERVANTES MD) ROXANA CERVANTES MD Feb 07, 2021 00:59 KARLA JONES DO Feb 07, 2021 07:15
[2021-02-07] MEDS ORDERED: IV RINGERS SOLUTION,LACTATED 1,000 ML IV SCH (01:30)
[2021-02-07] MEDS ORDERED: ASPIRIN CHEWABLE 81 MG TABLET. PO ONE (01:30)
--- NOTE | 2021-02-07 01:39 | EKG ---
[address] [address] Test Date: 2021-02-07 Test Time: 01:05:53 Pat Name: MARTINA MURRAY Department: Room: Gender: F [employer] Crewmember: : 1995 Requested By: ROXANA CERVANTES Order Number: [id number] Reading MD: Measurements Intervals [place] Rate: 74 P: 52 MS: 142 QRS: 64 QRSD: 88 T: 14 QT: 360 QTc: 404 Interpretive Statements SINUS RHYTHM ATRIAL PREMATURE COMPLEX(ES) OTHERWISE NORMAL ECG RI6.02 No previous ECG available for comparison
[2021-02-07 03:22] LABS: BARBITURATES POS (NEG); BENZODIAZEPINES NEG (NEG); CANNABINOIDS NEG (NEG); COCAINE NEG (NEG); METHADONE NEG (NEG); OPIATES POS (NEG); PHENCYCLIDINE NEG (NEG)
[2021-02-07 03:23] LABS: AMPHETAMINE/METHAMPHETAMINE NEG (NEG)
[2021-02-07 03:24] LABS: BASO % 1 % (0-3); EOS # 0.1 x10^3/uL (0.0-0.7); EOS % 1 % (0-3); HEMATOCRIT 33.5 % (36.0-47.0); HEMOGLOBIN 10.8 g/dL (12.0-15.5); LYMPH # 1.4 x10^3/uL (1.0-4.8); LYMPH % 25 % (24-48); MEAN CORPUSCULAR HEMOGLOBIN 26 pg (25-35); MEAN CORPUSCULAR HGB CONC 32 g/dL (31-37); MEAN CORPUSCULAR VOLUME 81 fL (79-100); MONO # 0.3 x10^3/uL (0.0-1.1); MONO % 5 % (0-9); NEUT # 3.9 x10^3uL (1.8-7.7); NEUT % 68 % (31-73); PLATELET COUNT 303 x10^3/uL (140-400); RED BLOOD COUNT 4.16 x10^6/uL (3.50-5.40); RED CELL DISTRIBUTION WIDTH 15.8 % (11.5-14.5); WHITE BLOOD COUNT 5.7 x10^3/uL (4.0-11.0)
[2021-02-07 03:25] LABS: BACTERIA,URINE FEW /HPF (0-FEW); BILIRUBIN,URINE NEG (NEG); CLARITY,URINE CLEAR; COLOR,URINE YELLOW; GLUCOSE,URINE NEG (NEG); NITRITE,URINE NEG (NEG); RBC,URINE 0 /HPF (0-2); SQUAMOUS EPITHELIAL CELL,UR OCC /LPF; WBC,URINE 0 /HPF (0-4)
[2021-02-07 03:34] LABS: CREATININE 0.6 mg/dL (0.6-1.0); GFR 119.9; POTASSIUM 3.9 mmol/L (3.5-5.1)
[2021-02-07 03:38] VITALS: BP 112/69
[2021-02-07 03:47] LABS: INFLUENZA A PATIENT NEGATIVE (NEGATIVE); INFLUENZA B PATIENT NEGATIVE (NEGATIVE)
[2021-02-07 03:47] LABS: ALBUMIN 3.3 g/dL (3.4-5.0); DIRECT BILIRUBIN 0.1 mg/dL (0.0-0.2); MAGNESIUM 1.9 mg/dL (1.8-2.4); TOTAL BILIRUBIN 0.1 mg/dL (0.2-1.0)
[2021-02-07] MEDS ORDERED: CONTRAST GIVEN. MC PRN (05:45)
[2021-02-07] MEDS ORDERED: IOHEXOL 350 MG/ML 100 ML VIAL. IV ONE (06:00)
--- NOTE | 2021-02-07 07:02 | RAD ---
CTA CHEST INDICATION: Dyspnea, cp Comparison: None. TECHNIQUE: Following the uneventful administration of intravenous contrast, 100 cc Omnipaque 350, axi al CT sections were obtained through the lungs and upper abdomen. Multiplanar reconstructions and MIP images were obtained. PQRS compliance statement: One or more of the following individualized dose reduction techniques were utilized for this examinat ion: 1. Automated exposure control 2. Adjustment of the mA and/or kV according to patient size 3. Use of iterative reconstruction technique FINDINGS: Pulmonary arteries: No evidence of pulmonary thromboembolic disease Lungs and Airways: No pulmonary mass or consolidation. No abnormality of the central airways. Pleura: The pleural spaces are normal. Heart and Mediastinum: The visualized thyroid is normal in size and attenuation. Bilateral axillary a nd subpectoral lymphadenopathy. No mediastinal, hilar or retrocrural lymphadenopathy. The heart and p ericardium are within normal limits. Normal caliber thoracic aorta. Abdomen: Limited images through the upper abdomen show no abnormality of the visualized organs. Bones and Soft Tissues: The visualized bones and chest wall soft tissues are within normal limits. IMPRESSION: 1. No evidence of pulmonary thrombolic disease. 2. No pulmonary mass or consolidation. 3. Bilateral axillary and subpectoral lymphadenopathy of indeterminate etiology. While this could be reactive, lymphoproliferative disorder could have a similar appearance. Clinical correlation is advis ed. Electronically signed by: Chucho Martin MD (02/07/2021 7:00 AM) [facility]
== END 2021-02-07 07:27 | disposition home or self-care (01) ==
LOC: ER 00:54
DX: R07.89 Other chest pain (principal); R59.0 Localized enlarged lymph nodes; R79.1 Abnormal coagulation profile; D64.9 Anemia, unspecified; J45.909 Unspecified asthma, uncomplicated; Z20.822 Contact with and (suspected) exposure to COVID-19
CPT/HCPCS: 71275; 80048; 80076; 80307; 81001; 81025; 82550; 83690; 83735; 83880; 84443; 84484; 85025; 85379; 85610; 85730; 87426; 87804; 93005; 96360; 99285; C9803; J7120; Q9967; U0003

== ENCOUNTER 2021-02-13 03:49 | Inpatient (IN) | payer OTHER ==
[~2021-02-13] VITALS: Ht 167.6 cm; Wt 96.9 kg
--- NOTE | 2021-02-13 03:56 | PHYS DOC ---
Past History Past Medical History: Asthma Past Medical History Adenopathy- Bilateal Axilklary and Subpectoral Past Surgical History: No Surgical History, Alcohol Use: None General Adult EDM: Chief Complaint: CHEST PAIN HPI: HPI: ".. My chest hurting bad tonight.. I was here the other day.. I don ' t sed Dr. Blackmon until Tuesday.. I can't wait that long...." Patient is a 25 year old female who presents with above hx and complaints of central chest pain. Chest pain appears to have some respiratory component. Pain is across the central area of chest. Pain currently rated 9-10out of 10. Has had chest pain previously similar to this and was seen in the ER on 02/07/2021. At that time she had been taking some ibuprofen which helped with the pain. Patient denies any history of pulmonary embolisms, DVTs, coagulopathy, trauma, fever, chills, trauma . Patient did have Covid infection in October last year. Patient has not gotten flu vaccination. Patient normally follows Dr. Blackmon. Patient does not smoke. Patient does not use illicit drugs. Patient CT on last visit showed no findings of pulmonary malignancy. Did have findings of bilateral axillary adenopathy. No pulmonary masses. No infiltrations appreciated. Patient does have a follow-up appoint with Dr. Blackmon on 02/16. Patient has never had a stress test. Pt. did have COVID in 2019. Review of Systems: Review of Systems: Constitutional: Denies fever or chills Eyes: Denies change in visual acuity HENT: Denies nasal congestion or sore throat Respiratory: Denies cough or shortness of breath Cardiovascular: Complains of pleuritic chest pain. GI: Denies abdominal pain, nausea, vomiting, bloody stools or diarrhea : Denies dysuria Musculoskeletal: Denies back pain or joint pain Integument: Denies rash Neurologic: Denies headache, focal weakness or sensory changes Endocrine: Denies polyuria or polydipsia Lymphatic: Denies swollen glands Psychiatric: Denies depression or anxiety Family History: Family History: Noncontributory to presentation Current Medications: Current Meds: See nursing for home meds Allergies: Allergies: Allergies Coded Allergies Type Severity Reaction Last Updated Verified No Known Drug Allergies 06/14/20 No Physical Exam: PE: Constitutional: Reports acute distress, non-toxic appearance. [] HENT: Normocephalic, atraumatic, bilateral external ears normal, oropharynx moist, no oral exudates, nose normal. [] Eyes: PERRLA, EOMI, conjunctiva normal, no discharge. [] Neck: Normal range of motion, no tenderness, supple, no stridor. [] Cardiovascular:Heart rate regular rhythm, no murmur [] Lungs & Thorax: Bilateral breath sounds equal apex on auscultation [] injury does have some scratches to it Abdomen: Bowel sounds normal, soft, no tenderness, no masses, no pulsatile masses. Mild obesity Skin: Warm, dry, no erythema, no rash. [] Back: No tenderness, no CVA tenderness. [] Extremities: No tenderness, no cyanosis, no clubbing, ROM intact, no edema. No cording Neurologic: Alert and oriented X 3, normal motor function, normal sensory function, no focal deficits noted. [] Psychologic: Affect very anxious, judgement normal, mood normal. [] EKG: EKG: My interpretation EKG shows a sinus rhythm at 89 bpm. No acute morphology time of this EKG is 0355 hrs. [] Radiology/Procedures: Radiology/Procedures: [] Heart Score: C/O Chest Pain: Yes HEART Score for Chest Pain: HEART Score for Chest Pain Response (Comments) Value History Slighlty/Non-Suspicious 0 ECG Normal 0 Age < 45 0 Risk Factors No Risk Factors 0 Troponin < Normal Limit 0 Total 0 Risk Factors: Risk Factors: DM, Current or recent (<one month) smoker, HTN, HLP, family history of CAD, obesity. Risk Scores: Score 0 - 3: 2.5% MACE over next 6 weeks - Discharge Home Score 4 - 6: 20.3% MACE over next 6 weeks - Admit for Clinical Observation Score 7 - 10: 72.7% MACE over next 6 weeks - Early Invasive Strategies Course & Med Decision Making: Course & Med Decision Making Pertinent Labs and Imaging studies reviewed. (See chart for details) Discussed presentation, testing and tx.plan with Dr. Blackmon. Admit to his service with Cardiology consult. Suspect pain is chest wall- Will US ext. eval. DVT. CT on 02/07 negaive for PE. If US studies are negative, consider repeat CT-for PE. Impression: 1. Chest Pain- Suspect Chest Wall 2. Anemia 3. Adenopathy-axillary 4. Elevated D-dimer 4.07 [] Dragon Disclaimer: Dragon Disclaimer: This electronic medical record was generated, in whole or in part, using a voice recognition dictation system. Departure Departure: Referrals: JEFERSON BLACKMON MD (PCP) Scripts Apixaban (ELIQUIS) 5 Mg Tablet 5 MG PO BID for dvt for 14 Days, #28 TAB Prov: JEFERSON BLACKMON MD 02/13/21 Dragyamile Disclaimer This chart was dictated in whole or in part using Voice Recognition software in a busy, high-work load, and often noisy Emergency Department environment. It may contain unintended and wholly unrecognized errors or omissions. ROXANA CERVANTES MD Feb 13, 2021 03:56
[2021-02-13] MEDS ORDERED: IV RINGERS SOLUTION,LACTATED 1,000 ML IV SCH (04:00)
[2021-02-13] MEDS ORDERED: ASPIRIN CHEWABLE 81 MG TABLET. PO ONE (04:00)
[2021-02-13] MEDS ORDERED: KETOROLAC 30 MG/ML VIAL. IVP ONE (04:00)
[2021-02-13 04:15] LABS: BASO # 0.1 x10^3/uL (0.0-0.2); BASO % 1 % (0-3); EOS # 0.1 x10^3/uL (0.0-0.7); EOS % 1 % (0-3); HEMATOCRIT 37.4 % (36.0-47.0); HEMOGLOBIN 12.1 g/dL (12.0-15.5); LYMPH % 32 % (24-48); MEAN CORPUSCULAR HEMOGLOBIN 26 pg (25-35); MEAN CORPUSCULAR HGB CONC 33 g/dL (31-37); MEAN CORPUSCULAR VOLUME 80 fL (79-100); MONO # 0.3 x10^3/uL (0.0-1.1); MONO % 5 % (0-9); NEUT # 3.9 x10^3uL (1.8-7.7); NEUT % 61 % (31-73); PLATELET COUNT 372 x10^3/uL (140-400); RED BLOOD COUNT 4.68 x10^6/uL (3.50-5.40); RED CELL DISTRIBUTION WIDTH 15.8 % (11.5-14.5); WHITE BLOOD COUNT 6.4 x10^3/uL (4.0-11.0)
[2021-02-13] MEDS ORDERED: MAGNESIUM HYDROXIDE 2,400 MG/30 ML ORAL.SUSP. PO ONE (04:15)
[2021-02-13] MEDS ORDERED: FAMOTIDINE 20 MG/2 ML VIAL IVP ONE ×2 (04:15→09:00)
--- NOTE | 2021-02-13 04:39 | EKG ---
[address] [address] Test Date: 2021-02-13 Test Time: 03:55:48 Pat Name: MARTINA MURRAY Department: Room: Gender: F Etl Application Developer: : 1995 Requested By: ROXANA CERVANTES Order Number: [id number] Reading MD: Jame Lopez MD Measurements Intervals [place] Rate: 89 P: 43 IN: 152 QRS: 54 QRSD: 90 T: 12 QT: 352 QTc: 429 Interpretive Statements SINUS RHYTHM Electronically Signed On 02-16-2021 13:26:46 SPEECH LANG PATH THERAPIST by Jame Lopez MD
[2021-02-13 04:49] LABS: CALCIUM 9.3 mg/dL (8.5-10.1); CREATININE 0.6 mg/dL (0.6-1.0); GFR 119.9
[2021-02-13 05:01] LABS: ALBUMIN 3.8 g/dL (3.4-5.0); DIRECT BILIRUBIN 0.1 mg/dL (0.0-0.2); MAGNESIUM 2.1 mg/dL (1.8-2.4); TOTAL BILIRUBIN 0.4 mg/dL (0.2-1.0); TOTAL PROTEIN 8.6 g/dL (6.4-8.2)
[2021-02-13 05:02] LABS: POTASSIUM 4.5 mmol/L (3.5-5.1)
[2021-02-13] MEDS ORDERED: ENOXAPARIN ** NOTE DOSE ** SYRINGE SQ ONE ×2 (05:15→17:00)
[2021-02-13] MEDS ORDERED: ONDANSETRON PF 4 MG/2 ML VIAL. IVP PRN (05:15)
[2021-02-13] MEDS ORDERED: ACETAMINOPHEN 325 MG TABLET PO PRN (05:15)
[2021-02-13] MEDS ORDERED: IPRATRPIUM/ALBUTEROL 0.5/2.5MG 3 ML NEBU. ONE ×2 (05:21→05:42)
[2021-02-13 05:39] LABS: BARBITURATES NEG (NEG); BENZODIAZEPINES NEG (NEG); CANNABINOIDS NEG (NEG); COCAINE NEG (NEG); METHADONE NEG (NEG); OPIATES NEG (NEG); PHENCYCLIDINE NEG (NEG)
[2021-02-13 05:40] LABS: BACTERIA,URINE 0 /HPF (0-FEW); BILIRUBIN,URINE NEG (NEG); CLARITY,URINE CLEAR; COLOR,URINE YELLOW; GLUCOSE,URINE NEG (NEG); NITRITE,URINE NEG (NEG); RBC,URINE 0 /HPF (0-2); SQUAMOUS EPITHELIAL CELL,UR FEW /LPF; UROBILINOGEN,URINE 0.2 mg/dL (0.2 mg/dL); WBC,URINE OCC /HPF (0-4)
[2021-02-13 05:42] LABS: AMPHETAMINE/METHAMPHETAMINE NEG (NEG)
[2021-02-13 06:33] VITALS: BP 137/88
--- NOTE | 2021-02-13 06:44 | RAD ---
EXAM: CHEST ONE VIEW. HISTORY: Chest pain. COMPARISON: 02/07/2021. FINDINGS: A frontal view of the chest is obtained. The inspiration is small with mild basilar atelectasis. There is no pneumothorax or pleural effusion. The heart is not enlarged. IMPRESSION: 1. No confluent infiltrates. Electronically signed by: Kathleen Johnson MD (02/13/2021 6:41 AM) [facility]
[2021-02-13] MEDS ORDERED: IPRATRPIUM/ALBUTEROL 0.5/2.5MG 3 ML NEBU. NEB SCH (08:00)
[2021-02-13] MEDS ORDERED: IBUP800T19 PO (09:08)
[2021-02-13] MEDS ORDERED: PANT40TA6 PO (09:08)
[2021-02-13] MEDS ORDERED: PREN-14 PO (09:08)
[2021-02-13] MEDS ORDERED: IBUPROFEN 800 MG TABLET. PO PRN (11:30)
[2021-02-13 11:48] VITALS: BP 92/63
[2021-02-13] MEDS ORDERED: APIX5TAB3 PO (12:19)
--- NOTE | 2021-02-13 18:47 | HP ---
DATE OF SERVICE: 02/13/2021 ADMIT DATE: 02/13/2021 HISTORY OF PRESENT ILLNESS: A 25-year-old female came in through the Emergency Room with chief complaint of chest pain, appears to have some respiratory component. The patient notes the pain across her chest. Notes the pain is 9/10. The patient was seen in the ER on 02/07/2021 for a similar problem, taken ibuprofen, apparently still has pain. The patient was worked up, although she has had a history of pulmonary emboli, DVTs, coagulopathy and so forth. The patient does have an elevated D-dimer of greater than 4. The patient was admitted for further evaluation and observation for her chest pain. PAST MEDICAL HISTORY: Includes that of cardiac disorders, angina, asthma, , endocrine disorders, adenopathy, psychiatric problems, depression. Influenza vaccination up to date. FAMILY HISTORY: Positive for supraventricular tachycardia in the mother, thyroid, diabetes and cancer. ALLERGIES: The patient has no known drug allergies. SOCIAL HISTORY: Denies smoking, alcohol or hard drug use. HOME MEDICATIONS: Include that of Eliquis 5 mg b.i.d., ibuprofen 800 mg p.r.n., Protonix 40, vitamins. REVIEW OF SYSTEMS: The patient denies any headaches, visual change, blurred vision, double vision. Does have chest pain, shortness of breath. Nothing seems to make it better or worse. The patient denies any abdominal pain. Denies any melena, hematochezia or hematemesis, and neurologically, the patient is alert and oriented x3. PHYSICAL EXAMINATION: GENERAL: This is a very pleasant white female, in moderate amount of discomfort. VITAL SIGNS: The patient's blood pressure 112/70, respiratory rate 26, down to 18; pulse 92-86, afebrile, room air 97-99%. HEENT: The patient otherwise head atraumatic, normocephalic. Eyes: PERRLA without jaundice. Mouth and throat were normal. NECK: Supple without JVD, carotid or thyroidmegaly. LUNGS: Diminished throughout, poor movement of air, but clear. CARDIOVASCULAR: Regular sinus rhythm. ABDOMEN: Soft, nontender, no rebound or guarding. Positive bowel sounds, no hepatosplenomegaly noted. EXTREMITIES: No clubbing, cyanosis, nor edema. NEUROLOGIC: The patient was alert and oriented x3. EXTREMITIES: Show no signs of swelling. Her Jordan signs was negative. LABORATORY DATA: The patient's, white count, CBC was perfectly normal. Chemistries were within range except for slight elevation of alkaline phosphatase. Troponins were less than 4. The patient's total protein 8.6. TSH was slightly elevated at 3.938 according to this lab. The patient's D-dimer as noted is 4.17. Serology was negative for COVID. The patient otherwise will continue to be monitored. She was monitored. Her cardiac enzymes were all negative. The patient continued to have some chest discomfort. She will have Dopplers done as an outpatient as this being a weekend we are unable to, the machine apparently was broken or something, instead of keeping her the patient wanted and demanded to be discharged home. IMPRESSION: Chest pain, unknown etiology; elevated D-dimer. Continue to monitor the patient accordingly, make further evaluation on her as an outpatient. DEMIAN/CODIE/DELBERT DR: Paul TID: [id number]
[2021-02-13] MEDS ORDERED: APIXABAN 5 MG TABLET. PO SCH (21:00)
[2021-02-14] MEDS ORDERED: ASPIRIN ENTERIC COATED 81 MG TABLET.DR. PO SCH (08:00)
[2021-02-14] MEDS ORDERED: PANTOPRAZOLE 40 MG TABLET. PO SCH (09:00)
[2021-02-14] MEDS ORDERED: PRENATAL MULTIVITAMIN TABLET. PO SCH (09:00)
== END 2021-02-13 13:08 | disposition home or self-care (01) | DRG 313 ==
LOC: ER 03:49 → 1 SOUTH 05:05
PROVIDERS: ADMIT Family Medicine; ATTEND Family Medicine
DX: R07.89 Other chest pain (principal); J45.909 Unspecified asthma, uncomplicated; D64.9 Anemia, unspecified; R59.0 Localized enlarged lymph nodes; R79.89 Other specified abnormal findings of blood chemistry; Z20.822 Contact with and (suspected) exposure to COVID-19; Z86.711 Personal history of pulmonary embolism; Z83.3 Family history of diabetes mellitus; Z79.01 Long term (current) use of anticoagulants; Z86.16 Personal history of COVID-19
CPT/HCPCS: 36415; 71045; 80048; 80076; 80307; 81001; 82550; 83690; 83735; 83880; 84443; 84484; 85025; 85379; 85610; 85730; 87426; 93005; 94640; 96361; 96372; 96374; 96375; J1650; J1885; J3490; J7120; U0003; 99285-25

== ENCOUNTER → 2021-02-19 | Outpatient (CLI) | payer OTHER ==
[2021-02-13 11:48] VITALS: BP 92/63
[~2021-02-19] MED LIST changes: +APIX5TAB3 PO; +IBUP800T19 PO; +PANT40TA6 PO; +PREN-14 PO
--- NOTE | 2021-02-19 14:54 | RAD ---
INDICATION: Leg swelling. COMPARISON: None. TECHNIQUE: Grayscale, color and doppler ultrasound images were obtained of the bilateral lower extrem ity venous vasculature. RIGHT: No thrombus identified in the common femoral vein, femoral vein, popliteal vein or visualized calf ve ins. LEFT: No thrombus identified in the common femoral vein, femoral vein, popliteal vein or visualized calf ve ins. IMPRESSION: * No thrombus identified in deep venous system of bilateral lower extremities. Electronically signed by: Iglesia Arceo MD (02/19/2021 2:52 PM) [id number]
== END ==
LOC: US 13:46
PROVIDERS: ATTEND Family Medicine
DX: R79.9 Abnormal finding of blood chemistry, unspecified (principal)
CPT/HCPCS: 93970

== ENCOUNTER 2021-03-31 12:01 | Emergency (ER) | payer OTHER ==
[~2021-03-31] VITALS: Ht 167.6 cm; Wt 90.0 kg
[2021-03-31 14:03] LABS: BASO % 1 % (0-3); EOS # 0.1 x10^3/uL (0.0-0.7); EOS % 3 % (0-3); HEMATOCRIT 35.7 % (36.0-47.0); HEMOGLOBIN 11.4 g/dL (12.0-15.5); LYMPH # 1.2 x10^3/uL (1.0-4.8); LYMPH % 27 % (24-48); MEAN CORPUSCULAR HEMOGLOBIN 25 pg (25-35); MEAN CORPUSCULAR HGB CONC 32 g/dL (31-37); MEAN CORPUSCULAR VOLUME 79 fL (79-100); MONO # 0.2 x10^3/uL (0.0-1.1); MONO % 5 % (0-9); NEUT # 3.1 x10^3uL (1.8-7.7); NEUT % 65 % (31-73); PLATELET COUNT 303 x10^3/uL (140-400); RED BLOOD COUNT 4.54 x10^6/uL (3.50-5.40); RED CELL DISTRIBUTION WIDTH 15.2 % (11.5-14.5); WHITE BLOOD COUNT 4.7 x10^3/uL (4.0-11.0)
[2021-03-31 14:11] LABS: CALCIUM 9.3 mg/dL (8.5-10.1); CREATININE 0.8 mg/dL (0.6-1.0); GFR 85.4; POTASSIUM 3.6 mmol/L (3.5-5.1)
[2021-03-31] MEDS ORDERED: CONTRAST GIVEN. MC PRN (14:15)
[2021-03-31 14:17] LABS: ALBUMIN 3.7 g/dL (3.4-5.0); ALBUMIN/GLOBULIN RATIO 0.8 (1.0-1.7); TOTAL BILIRUBIN 0.4 mg/dL (0.2-1.0); TOTAL PROTEIN 8.2 g/dL (6.4-8.2)
[2021-03-31] MEDS: IOHEXOL 350 MG/ML 100 ML VIAL. IV ONE (14:21)
[2021-03-31] MEDS: DEXAMETHASONE SOD PHOS 4 MG/ML VIAL. IVP ONE (14:34)
[2021-03-31] MEDS: ONDANSETRON PF 4 MG/2 ML VIAL. IVP ONE (14:35)
[2021-03-31] MEDS: diphenhydrAMINE 50 MG/ML VIAL IVP ONE (14:35)
--- NOTE | 2021-03-31 14:46 | RAD ---
Examination: CT angiography chest with IV contrast HISTORY: History of chest pain, elevated d-dimer COMPARISON: 10/10/2020 TECHNIQUE: Axial CT angiographic images of chest were performed with IV contrast. Coronal and sagitta l reformats are performed Exposure: One or more of the following individualized dose reduction techniques were utilized for thi s examination: 1. Automated exposure control 2. Adjustment of the mA and/or kV according to patient size 3. Use of iterative reconstruction technique FINDINGS: The visualized thyroid gland grossly appears unremarkable. The central airways are patent. The calibe r of the aorta grossly appears unremarkable. No evidence for significant mediastinal lymphadenopathy identified. There is only minimal contrast identified in the main pulmonary arterial trunk and right and left main pulmonary arteries which limits evaluation, grossly no large filling defect identified in the central pulmonary arterial branches. The evaluation of distal branches is very limited. Few enlarged bilateral axillary lymph nodes and subpectoral lymph nodes similar to prior exam. The lungs are clear. The liver, spleen grossly appears unremarkable. No evidence of lytic bony destructive lesion. IMPRESSION: 1. Very limited examination as there is only minimal contrast identified in the main pulmonary arter ial trunk and right and left main pulmonary arteries which limits evaluation , grossly no large filli ng defect identified in the central pulmonary arterial branches. The evaluation of distal branches is very limited. 2. The lungs are clear. 3. Few enlarged bilateral axillary lymph nodes and subpectoral lymph nodes similar to prior exam, no nspecific. Electronically signed by: Liam Bowers MD (03/31/2021 2:43 PM) [id number]
--- NOTE | 2021-03-31 14:59 | PHYS DOC ---
Past History Past Medical History: Asthma (EMMA HUGGINS) Past Surgical History: No Surgical History (EMMA HUGGINS) Smoking: Non-smoker Alcohol Use: None (EMMA HUGGINS) General Adult EDM: Chief Complaint: SORE THROAT HPI: HPI: Patient is a 26 year old female who presents with chest pain that has been ongoing for approximately 6 weeks. Patient was originally seen in late January and found to have an elevated D-dimer. Her CT angio chest at that time was negative. Since then, patient has also had outpatient ultrasound imaging of her bilateral lower extremities. These were also negative. Patient reports medication compliance with a 2-week course of Eliquis that was prescribed by her primary care provider, Dr. Altamirano. She states that taking 400 mg of ibuprofen daily is not helping relieve her discomfort. She denies palpitations, shortness of breath, cough or any other complaints. (EMMA HUGGINS) Review of Systems: Review of Systems: Constitutional: Denies fever, chills or generalized weakness Eyes: Denies change in visual acuity, visual field deficits or discharge HENT: Denies ear pain, nasal congestion or sore throat Respiratory: See HPI Cardiovascular: See HPI GI: Denies abdominal pain, nausea, vomiting, bloody stools or diarrhea : Denies dysuria or hematuria Musculoskeletal: Denies back pain or joint pain Integument: Denies rash or other skin lesion Neurologic: Denies headache, focal weakness or sensory changes (EMMA HUGGINS) Current Medications: Current Meds: Current Medications Medications (Trade) Dose Ordered Sig/Ottoniel Start Time Stop Time Status Last Admin Dose Admin Dexamethasone Sodium Phosphate (Decadron) 4 mg 1X ONCE 03/31/21 14:30 03/31/21 14:31 DC 03/31/21 14:34 4 MG Diphenhydramine HCl (Benadryl) 25 mg 1X ONCE 03/31/21 14:30 03/31/21 14:31 DC 03/31/21 14:35 25 MG Info (Do NOT chart on this entry -- for MONITORING) 1 each PRN DAILY PRN 03/31/21 14:15 04/02/21 14:14 Iohexol (Omnipaque 350 Mg/ml) 100 ml 1X ONCE 03/31/21 14:00 03/31/21 14:03 DC 03/31/21 14:21 100 ML Ondansetron HCl (Zofran) 4 mg 1X ONCE 03/31/21 14:30 03/31/21 14:31 DC 03/31/21 14:35 4 MG (EMMA HUGGINS) Allergies: Allergies: Allergies Coded Allergies Type Severity Reaction Last Updated Verified No Known Drug Allergies 03/31/21 No (EMMA HUGGINS) Physical Exam: PE: Constitutional: Well developed, well nourished, no acute distress, non-toxic appearance. HENT: Normocephalic, atraumatic, bilateral external ears normal, nose normal. Eyes: EOMI, conjunctiva normal, no discharge. Neck: Normal range of motion, no stridor. Cardiovascular: Heart rate regular rhythm, no murmur. Lungs & Thorax: Bilateral breath sounds clear to auscultation. Skin: Warm, dry, no erythema, no rash. Extremities: No tenderness, no cyanosis, no clubbing, ROM intact, no edema. Neurologic: Alert and oriented x4, no focal deficits noted. (EMMA HUGGINS) Current Patient Data: Labs: Laboratory Tests Test 03/31/21 12:55 White Blood Count 4.7 x10^3/uL (4.0-11.0) Red Blood Count 4.54 x10^6/uL (3.50-5.40) Hemoglobin 11.4 g/dL (12.0-15.5) L Hematocrit 35.7 % (36.0-47.0) L Mean Corpuscular Volume 79 fL (79-100) Mean Corpuscular Hemoglobin 25 pg (25-35) Mean Corpuscular Hemoglobin Concent 32 g/dL (31-37) Red Cell Distribution Width 15.2 % (11.5-14.5) H Platelet Count 303 x10^3/uL (140-400) Neutrophils (%) (Auto) 65 % (31-73) Lymphocytes (%) (Auto) 27 % (24-48) Monocytes (%) (Auto) 5 % (0-9) Eosinophils (%) (Auto) 3 % (0-3) Basophils (%) (Auto) 1 % (0-3) Neutrophils # (Auto) 3.1 x10^3uL (1.8-7.7) Lymphocytes # (Auto) 1.2 x10^3/uL (1.0-4.8) Monocytes # (Auto) 0.2 x10^3/uL (0.0-1.1) Eosinophils # (Auto) 0.1 x10^3/uL (0.0-0.7) Basophils # (Auto) 0.0 x10^3/uL (0.0-0.2) Sodium Level 141 mmol/L (136-145) Potassium Level 3.6 mmol/L (3.5-5.1) Chloride Level 103 mmol/L (98-107) Carbon Dioxide Level 26 mmol/L (21-32) Anion Gap 12 (6-14) Blood Urea Nitrogen 7 mg/dL (7-20) Creatinine 0.8 mg/dL (0.6-1.0) Estimated GFR (Cockcroft-Gault) 85.4 BUN/Creatinine Ratio 9 (6-20) Glucose Level 92 mg/dL (70-99) Calcium Level 9.3 mg/dL (8.5-10.1) Total Bilirubin 0.4 mg/dL (0.2-1.0) Aspartate Amino Transferase (AST) 18 U/L (15-37) Alanine Aminotransferase (ALT) 20 U/L (14-59) Alkaline Phosphatase 127 U/L (46-116) H Troponin I High Sensitivity 4 ng/L (4-50) Total Protein 8.2 g/dL (6.4-8.2) Albumin 3.7 g/dL (3.4-5.0) Albumin/Globulin Ratio 0.8 (1.0-1.7) L Vital Signs: Vital Signs Date Time Temp Pulse Resp B/P (MAP) Pulse Ox O2 Delivery O2 Flow Rate FiO2 03/31/21 13:30 98.2 82 18 106/82 (90) 99 Room Air (EMMA HUGGINS) EKG: EKG: EKG Interpreted by Dr. Armstrong at 1517: Regular rate and rhythm 68 bpm with no ectopic beats. QT 366 ms/QTc 394 ms. No STEMI. (EMMA HUGGINS) Radiology/Procedures: Radiology/Procedures: PROCEDURE: CT ANGIOGRAPHY CHEST Examination: CT angiography chest with IV contrast HISTORY: History of chest pain, elevated d-dimer COMPARISON: 10/10/2020 TECHNIQUE: Axial CT angiographic images of chest were performed with IV contrast. Coronal and sagittal reformats are performed Exposure: One or more of the following individualized dose reduction techniques were utilized for this examination: 1. Automated exposure control 2. Adju stment of the mA and/or kV according to patient size 3. Use of iterative reconstruction technique FINDINGS: The visualized thyroid gland grossly appears unremarkable. The central airways are patent. The caliber of the aorta grossly appears unremarkable. No evidence for significant mediastinal lymphadenopathy identified. There is only minimal contrast identified in the main pulmonary arterial trunk and right and left main pulmonary arteries which limits evaluation, grossly no large filling defect identified in the central pulmonary arterial branches. The evaluation of distal branches is very limited. Few enlarged bilateral axillary lymph nodes and subpectoral lymph nodes similar to prior exam. The lungs are clear. The liver, spleen grossly appears unremarkable. No evidence of lytic bony destructive lesion. IMPRESSION: 1. Very limited examination as there is only minimal contrast identified in the main pulmonary arterial trunk and right and left main pulmonary arteries which limits evaluation , grossly no large filling defect identified in the central pulmonary arterial branches. The evaluation of distal branches is very limited. 2. The lungs are clear. 3. Few enlarged bilateral axillary lymph nodes and subpectoral lymph nodes similar to prior exam, nonspecific. Electronically signed by: Liam Bowers MD (03/31/2021 2:43 PM) [id number] (EMMA HUGGINS) Heart Score: C/O Chest Pain: Yes HEART Score for Chest Pain: HEART Score for Chest Pain Response (Comments) Value History Slighlty/Non-Suspicious 0 ECG Normal 0 Age < 45 0 Risk Factors No Risk Factors 0 Troponin < Normal Limit 0 Total 0 Risk Factors: Risk Factors: none Risk Scores: Score 0 - 3: 2.5% MACE over next 6 weeks - Discharge Home Score 4 - 6: 20.3% MACE over next 6 weeks - Admit for Clinical Observation Score 7 - 10: 72.7% MACE over next 6 weeks - Early Invasive Strategies (EMMA HUGGINS) Course & Med Decision Making: Course & Med Decision Making Pertinent Labs and Imaging studies reviewed. (See chart for details) Patient is a 26 year old female who presents with chest pain that has been ongoing for approximately 6 weeks. In prior work-ups, patient was found to have a positive D-dimer and was treated with a 2-week course of Eliquis. Work-up today will include repeat CT angio chest, troponin, EKG, labs. No evidence of PE seen on CT angio today. D-dimer continues to be elevated. Discussed patient case with Dr. Altamirano, who concurs that a repeat course of Eliquis is reasonable. Provided hematology contact information for follow-up to the patient and advised she make an appointment at her earliest convenience. Patient questions were answered. Patient understands and is agreeable to discharge plan. (MEMA HUGGINS) Course & Med Decision Making I was the Attending physician on the above date of service of this patient. This patient was evaluated, examined, treated, and dispositioned from the emergency department by the mid-level practitioner. Although I was working at the time , no assistance was requested. Electronically signed, Christopher Armstrong DO (CHRISTOPHER ARMSTRONG DO) Ángela Disclaimer: Ángela Disclaimer: This electronic medical record was generated, in whole or in part, using a voice recognition dictation system. (EMMA HUGGINS) Departure Departure: Impression: Primary Impression: Acute nonspecific chest pain with low risk of coronary artery disease Disposition: HOME / SELF CARE / HOMELESS Condition: STABLE Referrals: JEFERSON MEJIA MD (PCP) DANNA KRAFT MD Patient Instructions: Chest Pain (Nonspecific), [id number] Additional Instructions: EMERGENCY DEPARTMENT GENERAL DISCHARGE INSTRUCTIONS Thank you for coming to [facility] (ED) today and trusting us with you care. We trust that you had a positive experience in our Emergency Department. If you wish to speak to the department management, you may call the director at [phone]. YOUR FOLLOW UP INSTRUCTIONS ARE FOLLOWS: 1. Follow up with your primary care doctor. If you do not have a primary doctor, please ask for a resource list of physicians or clinics that may be able to assist you with follow up care. 2. The emergency provider has interpreted your imaging studies, if any were ordered. The radiology color specialist also reviewed them. If there is a change in the findings, you will be notified in 48 hours when at all possible. 3. If a lab test or culture has been done, your results will be reviewed and you will be notified if you need a change in treatment. 4. Follow instructions verbalized to you and refer to the printouts if needed. ADDITIONAL INSTRUCTIONS AND INFORMATION: 1. Your care today has been supervised by a physician who is specially trained in emergency care. Many problems require more than one evaluation for a complete diagnosis and treatment. We recommend that you schedule your follow up appointment as recommended to ensure complete treatment of you illness or injury. If you are unable to obtain follow up care and continue to have a problem, or if your condition worsens, we recommend that you return to the ED. 2. We are not able to safely determine your condition over the phone nor are we able to give sound medical advice over the phone. For these safety reasons, if you call for medical advice we will ask you to come to the ED for further evaluation. 3. If you have any questions regarding these discharge instructions please call the ED at [phone]. SAFETY INFORMATION: In the interest of safety, wellness, and injury prevention; we encourage you to wear your seat belt, if you smoke; quite smoking, and we encourage family to use a protective helmet for bicycling and other sporting events that present an increased risk for head injury. IF YOUR SYMPTOMS WORSEN OR NEW SYMPTOMS DEVELOP, OR YOU HAVE CONCERNS ABOUT YOUR CONDITION; OR IF YOUR CONDITION WORSENS WHILE YOU ARE WAITING FOR YOUR FOLLOW UP APPOINTMENT; EITHER CONTACT YOUR PRIMARY CARE DOCTOR, THE PHYSICIAN WHOSE NAME AND NUMBER YOU WERE GIVEN, OR RETURN TO THE ED IMMEDIATELY. Scripts Apixaban (ELIQUIS) 5 Mg Tablet 5 MG PO UD for clot, #37 TAB Take 2 tablets by mouth for the first 7 days. Take 1 tablet/day by mouth after that. Prov: EMMA HUGGINS 03/31/21 EMMA HUGGINS Mar 31, 2021 14:59 CHRISTOPHER ARMSTRONG DO Apr 01, 2021 06:10
--- NOTE | 2021-03-31 16:08 | EKG ---
[address] [address] Test Date: 2021-03-31 Test Time: 15:13:50 Pat Name: MARTINA MURRAY Department: Room: Gender: F Tire Curer: SELINA : 1995 Requested By: EMMA HUGGINS Order Number: [id number] Reading MD: Measurements Intervals [place] Rate: 68 P: 50 [place]: 138 QRS: 47 QRSD: 86 T: 13 QT: 366 QTc: 394 Interpretive Statements SINUS RHYTHM NORMAL ECG RI6.02 No previous ECG available for comparison
[2021-03-31] MEDS ORDERED: APIX5TAB3 PO (16:13)
[2021-03-31 16:20] VITALS: BP 110/84
== END 2021-03-31 16:25 | disposition home or self-care (01) ==
LOC: ER 12:01
DX: U07.1 COVID-19 (principal); R07.89 Other chest pain; J45.909 Unspecified asthma, uncomplicated
CPT/HCPCS: 36415; 71275; 80053; 84484; 85025; 85379; 85610; 85730; 93005; 96374; 96375; 99285; C9803; J1100; J1200; J2405; Q9967; U0003